=== PATIENT | female | born 2000 | race African-American/Black ===

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

== ENCOUNTER 2021-07-26 14:31 | Emergency (ER) | payer OTHER ==
[~2021-07-26] VITALS: Ht 154 cm; Wt 60.0 kg
[~2021-07-26 14:31] MED LIST: NITR-65 PO
[2021-07-26] MEDS ORDERED: IBUPROFEN 600 MG (MOTRIN) TAB PO ONE (15:45)
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
[2021-07-26 15:53] VITALS: BP 125/62
== END 2021-07-26 15:54 | disposition home or self-care (01) ==
LOC: EDUNIT# 14:31 → ER FS 14:32
DX: M54.2 Cervicalgia (principal); M54.6 Pain in thoracic spine; V49.40XA Driver injured in collision with unspecified motor vehicles in traffic accident, initial encounter; Y92.410 Unspecified street and highway as the place of occurrence of the external cause
CPT/HCPCS: 99283